=== PATIENT | female | born 1955 | race African-American/Black ===

== ENCOUNTER 2016-11-08 23:20 | Emergency (ER) | payer OTHER ==
[~2016-11-08] VITALS: Ht 170.2 cm; Wt 84.0 kg
[2016-11-09] MEDS ORDERED: IBUPROFEN 600MG TABLET PO ONE (02:15)
[2016-11-09] MEDS ORDERED: BACITRACIN ZINC OINT UDPKT TOP ONE (02:15)
[2016-11-09 03:47] VITALS: BP 155/92
== END 2016-11-09 04:26 | disposition home or self-care (01) ==
LOC: ER 23:20
DX: Z48.01 Encounter for change or removal of surgical wound dressing (principal); I10 Essential (primary) hypertension; J45.909 Unspecified asthma, uncomplicated; E11.9 Type 2 diabetes mellitus without complications; Z88.0 Allergy status to penicillin; Z98.890 Other specified postprocedural states
CPT/HCPCS: 99283; X7700; Z7610

== ENCOUNTER 2017-08-31 19:53 | Emergency (ER) | payer OTHER ==
[~2017-08-31] VITALS: Ht 170.2 cm; Wt 84.0 kg
[2017-09-01] MEDS ORDERED: HYDROCODONE/ACETAMINOPHEN 5/325MG TABLET PO ONE (02:00)
[2017-09-01 05:58] VITALS: BP 135/83
== END 2017-09-01 06:05 | disposition home or self-care (01) ==
LOC: ER 21:48
DX: M79.661 Pain in right lower leg (principal); J45.909 Unspecified asthma, uncomplicated; I10 Essential (primary) hypertension; Z88.0 Allergy status to penicillin
CPT/HCPCS: 93971; 99284

== ENCOUNTER 2018-07-11 12:54 | Inpatient (IN) | payer MEDICAID, OTHER ==
[~2018-07-11] VITALS: Ht 162.6 cm; Wt 71.5 kg
[2018-07-11] MEDS ORDERED: SODIUM CHLORIDE 0.9% 1,000 ML IV ONE ×3 (14:52→18:45)
[2018-07-11 15:18] LABS: INR 1.1; PROTHROMBIN TIME 10.6 sec (9.1-11.1)
[2018-07-11 15:19] LABS: CHLORIDE 108 mEq/L (98-107)
[2018-07-11 15:25] LABS: BASOPHILS % 0.4 % (0.0-2.0); EOSINOPHILS % 2.5 % (0.0-5.0); HEMATOCRIT. 41.3 % (36.0-48.0); HEMOGLOBIN. 13.2 g/dL (12.0-16.0); LYMPHOCYTES % 22.9 % (20.0-50.0); MEAN CORPUSCULAR HEMOGLOBIN 26.6 pg (28.0-32.0); MEAN CORPUSCULAR VOLUME 83.3 fL (81.0-99.0); MEAN PLATELET VOLUME 8.9 fl (7.4-10.4); MONOCYTES % 9.5 % (2.0-8.0); NEUTROPHILS % 64.7 % (40.0-76.0); PLATELET 224 x1000/uL (130-400); RED BLOOD CELL COUNT 4.96 mill/uL (4.2-5.4); RED CELL DISTRIBUTION WIDTH 14.9 % (11.6-14.6)
[2018-07-11] MEDS ORDERED: ONDANSETRON HCL 4MG/2ML INJ IV PRN (17:00)
[2018-07-11] MEDS ORDERED: ACETAMINOPHEN 325MG TABLET PO PRN (17:00)
[2018-07-11 17:16] LABS: PHOSPHORUS 3.7 mg/dL (2.5-4.9)
[2018-07-12] VITALS (7 sets, daily range): BP systolic 121–160; BP diastolic 70–94
[2018-07-12] MEDS ORDERED: LISI10TA5 PO (06:07)
[2018-07-12] MEDS ORDERED: CLONIDINE 0.1MG TABLET PO PRN (09:15)
[2018-07-12] MEDS: MECLIZINE 25MG TABLET PO PRN ×2 (09:47→19:56)
[2018-07-12] MEDS: GABAPENTIN 300MG CAPSULE PO SCH ×2 (13:31→21:06)
[2018-07-12 13:41] LABS: BASOPHILS % 0.8 % (0.0-2.0); EOSINOPHILS % 5.4 % (0.0-5.0); HEMATOCRIT. 38.7 % (36.0-48.0); HEMOGLOBIN. 12.8 g/dL (12.0-16.0); LYMPHOCYTES % 43.6 % (20.0-50.0); MEAN CORPUSCULAR VOLUME 81.9 fL (81.0-99.0); MEAN PLATELET VOLUME 9.3 fl (7.4-10.4); MONOCYTES % 10.4 % (2.0-8.0); NEUTROPHILS % 39.8 % (40.0-76.0); PLATELET 205 x1000/uL (130-400); RED BLOOD CELL COUNT 4.73 mill/uL (4.2-5.4); RED CELL DISTRIBUTION WIDTH 14.8 % (11.6-14.6)
[2018-07-12 13:43] LABS: CHLORIDE 108 mEq/L (98-107)
[2018-07-12 20:29] LABS: T4 FREE 0.87 ng/dL (0.76-1.46)
[2018-07-12] MEDS: AMLODIPINE 5MG TABLET PO SCH (21:06)
[2018-07-12] MEDS: ATORVASTATIN CALCIUM 40MG TABLET PO SCH (21:06)
[2018-07-12 22:21] LABS: CREATINE KINASE 586 IU/L (26-192); CREATINE KINASE MB FRACTION 6.7 ng/mL (0.5-3.6)
[2018-07-13] VITALS: BP 142/76
[2018-07-13 04:00] VITALS: BP 130/89
[2018-07-13] MEDS: GABAPENTIN 300MG CAPSULE PO SCH ×4 (06:28→21:11)
[2018-07-13 07:08] LABS: BASOPHILS % 0.7 % (0.0-2.0); EOSINOPHILS % 5.7 % (0.0-5.0); HEMATOCRIT. 39.9 % (36.0-48.0); HEMOGLOBIN. 12.8 g/dL (12.0-16.0); LYMPHOCYTES % 54.7 % (20.0-50.0); MEAN CORPUSCULAR HEMOGLOBIN 26.5 pg (28.0-32.0); MEAN CORPUSCULAR VOLUME 82.8 fL (81.0-99.0); MEAN PLATELET VOLUME 9.1 fl (7.4-10.4); MONOCYTES % 10.3 % (2.0-8.0); NEUTROPHILS % 28.6 % (40.0-76.0); PLATELET 206 x1000/uL (130-400); RED BLOOD CELL COUNT 4.82 mill/uL (4.2-5.4); RED CELL DISTRIBUTION WIDTH 14.5 % (11.6-14.6)
[2018-07-13 07:12] LABS: CHLORIDE 110 mEq/L (98-107)
[2018-07-13 07:30] VITALS: BP 142/96
[2018-07-13 07:31] LABS: CREATINE KINASE 456 IU/L (26-192)
[2018-07-13 07:33] LABS: CREATINE KINASE MB FRACTION 5.6 ng/mL (0.5-3.6)
[2018-07-13] MEDS: AMLODIPINE 5MG TABLET PO SCH ×2 (08:41→21:11)
[2018-07-13] MEDS: MECLIZINE 25MG TABLET PO PRN (08:41)
[2018-07-13 12:26] VITALS: BP 126/75
[2018-07-13 16:17] VITALS: BP 133/87
[2018-07-13 18:31] LABS: CREATINE KINASE 407 IU/L (26-192)
[2018-07-13 19:02] LABS: CLARITY URINE CLEAR (CLEAR); COLOR URINE YELLOW (YELLOW); KETONES URINE NEGATIVE (NEGATIVE); LEUKOCYTE ESTERASE URINE NEGATIVE (NEGATIVE); NITRITE URINE NEGATIVE (NEGATIVE); OCCULT BLOOD URINE NEGATIVE (NEGATIVE); PROTEIN URINE NEGATIVE (NEGATIVE)
[2018-07-13 20:00] VITALS: BP 146/80
[2018-07-13] MEDS: CARVEDILOL 3.125 MG TABLET PO SCH (21:11)
[2018-07-13] MEDS: ATORVASTATIN CALCIUM 40MG TABLET PO SCH (21:12)
[2018-07-14] VITALS (7 sets, daily range): BP systolic 113–145; BP diastolic 71–89
[2018-07-14] MEDS: GABAPENTIN 300MG CAPSULE PO SCH ×2 (06:29→13:40)
[2018-07-14 07:24] LABS: CHLORIDE 105 mEq/L (98-107)
[2018-07-14 07:25] LABS: BASOPHILS % 0.9 % (0.0-2.0); EOSINOPHILS % 5.4 % (0.0-5.0); HEMATOCRIT. 41.2 % (36.0-48.0); HEMOGLOBIN. 13.3 g/dL (12.0-16.0); LYMPHOCYTES % 50.3 % (20.0-50.0); MEAN CORPUSCULAR HEMOGLOBIN 26.5 pg (28.0-32.0); MEAN CORPUSCULAR VOLUME 82.2 fL (81.0-99.0); MEAN PLATELET VOLUME 9.3 fl (7.4-10.4); NEUTROPHILS % 33.4 % (40.0-76.0); PLATELET 231 x1000/uL (130-400); RED BLOOD CELL COUNT 5.01 mill/uL (4.2-5.4); RED CELL DISTRIBUTION WIDTH 14.4 % (11.6-14.6)
[2018-07-14] MEDS ORDERED: LOSARTAN POTASSIUM 50 MG TABLET PO SCH (09:00)
[2018-07-14] MEDS: AMLODIPINE 5MG TABLET PO SCH (09:00)
[2018-07-14] MEDS: CARVEDILOL 3.125 MG TABLET PO SCH (09:33)
[2018-07-14] MEDS ORDERED: FLUT9.9S BOTHNSTRLS (11:06)
[2018-07-14] MEDS ORDERED: AMLO5TAB88 PO (11:06)
[2018-07-14] MEDS ORDERED: COR3 PO (11:06)
[2018-07-14] MEDS ORDERED: LIP40 PO (11:06)
[2018-07-14] MEDS ORDERED: LOSA50TA3 PO (11:06)
[2018-07-14] MEDS ORDERED: GABA-531 PO (11:06)
[2018-07-14] MEDS ORDERED: IBUPROFEN 600MG TABLET PO NR (15:30)
== END 2018-07-14 19:40 | disposition home health service (06) | DRG 48 ==
LOC: ER 12:54 → 8WST 16:48 → ENRESERV 07-12 03:07 → 8WST 07-12 04:41
PROVIDERS: ADMIT Internal Medicine; ATTEND Internal Medicine
DX: G90.8 Other disorders of autonomic nervous system (principal); E87.8 Other disorders of electrolyte and fluid balance, not elsewhere classified; I42.9 Cardiomyopathy, unspecified; I11.0 Hypertensive heart disease with heart failure; I50.22 Chronic systolic (congestive) heart failure; M66.0 Rupture of popliteal cyst; B34.9 Viral infection, unspecified; E11.9 Type 2 diabetes mellitus without complications; M17.12 Unilateral primary osteoarthritis, left knee; E78.5 Hyperlipidemia, unspecified; J45.909 Unspecified asthma, uncomplicated; I49.3 Ventricular premature depolarization; Z88.0 Allergy status to penicillin
CPT/HCPCS: 36415; 71045; 73560; 78582; 80048; 80061; 82550; 82553; 83036; 83605; 83735; 83880; 84100; 84439; 84443; 84484; 85379; 93005; 93306; 93880; 93970; 96360; 96361; 97116; 97530; 99285; A9558; J7030; J8597

== ENCOUNTER 2023-02-10 04:11 | Emergency (ER) | payer MEDICAID ==
[~2023-02-10] VITALS: Ht 177.8 cm; Wt 84.0 kg
[~2023-02-10 04:11] MED LIST: AMLO5TAB88 PO; COR3 PO; FLUT9.9S BOTHNSTRLS; GABA-532 PO; LIP40 PO; LOSA-413 PO
[2023-02-10 04:19] VITALS: O2SAT 99
[2023-02-10] MEDS ORDERED: HYDROCODONE/ACETAMINOPHEN 5/325MG TABLET PO ONE (05:15)
[2023-02-10 05:31] VITALS: BP 158/75; PULSE 79; RESP 16; TEMP 98
== END 2023-02-10 06:00 | disposition home or self-care (01) ==
LOC: ER 04:24
DX: S40.021A Contusion of right upper arm, initial encounter (principal); E11.9 Type 2 diabetes mellitus without complications; I10 Essential (primary) hypertension; Z88.0 Allergy status to penicillin; X58.XXXA Exposure to other specified factors, initial encounter; Y93.89 Activity, other specified; Y92.89 Other specified places as the place of occurrence of the external cause; Y99.8 Other external cause status
CPT/HCPCS: 73030; 73060; 99284

== ENCOUNTER 2023-06-03 22:05 | Emergency (ER) | payer MEDICAID ==
[~2023-06-03] VITALS: Ht 170.2 cm; Wt 87.2 kg
[2023-06-03 22:15] VITALS: O2SAT 98
[2023-06-04 00:41] VITALS: BP 145/74; PULSE 98; RESP 20; TEMP 98
== END 2023-06-04 00:43 | disposition home or self-care (01) ==
LOC: ER 22:05
DX: S90.851A Superficial foreign body, right foot, initial encounter (principal); E11.9 Type 2 diabetes mellitus without complications; I10 Essential (primary) hypertension; Z79.899 Other long term (current) drug therapy; Z88.0 Allergy status to penicillin; X58.XXXA Exposure to other specified factors, initial encounter; Y93.89 Activity, other specified; Y92.89 Other specified places as the place of occurrence of the external cause; Y99.8 Other external cause status
CPT/HCPCS: 73630; 99283

== ENCOUNTER 2024-05-21 19:28 | Emergency (ER) | payer MEDICARE, MEDICAID ==
[~2024-05-21] VITALS: Ht 172.7 cm; Wt 90.5 kg
[~2024-05-21 19:28] MED LIST changes: +GABA-1180 PO; -GABA-532 PO
[2024-05-21 19:57] VITALS: O2SAT 100
[2024-05-21 20:15] VITALS: BP 167/91; PULSE 103; RESP 19; TEMP 37.1; O2SAT 97
[2024-05-21] MEDS ORDERED: LIDO700A30 TP (22:45)
[2024-05-21] MEDS ORDERED: IBUP-2029 MT (22:45)
[2024-05-21] MEDS ORDERED: DICL100G58 TP (23:51)
== END 2024-05-22 00:46 | disposition home or self-care (01) ==
LOC: ER 19:28
DX: S83.92XA Sprain of unspecified site of left knee, initial encounter (principal); S09.90XA Unspecified injury of head, initial encounter; S70.02XA Contusion of left hip, initial encounter; E11.9 Type 2 diabetes mellitus without complications; I10 Essential (primary) hypertension; J45.909 Unspecified asthma, uncomplicated; Z79.899 Other long term (current) drug therapy; Z88.0 Allergy status to penicillin; W19.XXXA Unspecified fall, initial encounter; Y93.89 Activity, other specified; Y92.89 Other specified places as the place of occurrence of the external cause; Y99.8 Other external cause status
CPT/HCPCS: 73502; 73562; 99284